=== PATIENT | female | born 1975 | race Caucasian/White ===

== ENCOUNTER 2019-06-25 06:56 | Emergency (ER) | payer BC, OTHER ==
[~2019-06-25] VITALS: Ht 152.4 cm; Wt 79.4 kg
[2019-06-25] MEDS ORDERED: SODIUM CHLORIDE 0.9% 1000ML 1,000 ML IV STA (07:27)
[2019-06-25 07:40] LABS: BASOPHILS % 0.3 % (0.0-1.0); EOSINOPHILS # (AUTO) 0.3 (0.0-0.4); EOSINOPHILS % 2.6 % (0.0-6.0); HEMATOCRIT 35.2 % (34.2-44.1); HEMOGLOBIN 11.2 g/dL (12.0-16.0); LYMPHOCYTES # (AUTO) 1.3 (1.0-3.2); LYMPHOCYTES % 14.1 % (18.0-39.1); MEAN CORPUSCULAR HEMOGLOBIN 31.2 pg (28-32); MEAN CORPUSCULAR HGB CONC 31.8 g/dL (31-35); MEAN CORPUSCULAR VOLUME 98.1 fL (81-99); MONOCYTES # (AUTO) 0.5 (0.2-0.8); MONOCYTES % 4.9 % (4.4-11.3); NEUTROPHILS # (AUTO) 7.3 (2.1-6.9); NEUTROPHILS % 77.6 % (38.7-80.0); PLATELET COUNT 349 x10e3/uL (140-360); RED BLOOD COUNT 3.59 x10e6/uL (3.6-5.1); RED CELL DISTRIBUTION WIDTH 13.7 % (11.7-14.4)
[2019-06-25 07:41] LABS: CLARITY,URINE CLOUDY (CLEAR); COLOR,URINE RED (YELLOW)
[2019-06-25 07:42] LABS: BILIRUBIN,URINE NEGATIVE (NEGATIVE); KETONES,URINE NEGATIVE (NEGATIVE); LEUKOCYTE ESTERASE ,URINE MODERATE (NEGATIVE); NITRITE,URINE NEGATIVE (NEGATIVE); PROTEIN,URINE DIPSTICK 2+ (NEGATIVE); URINE UROBILINOGEN 0.2 mg/dL (0.2 - 1)
[2019-06-25 07:45] LABS: RBC,URINE >50 /HPF (0-5); WBC,URINE (MAN) >50 /HPF (0-5)
[2019-06-25 07:46] LABS: BACTERIA,URINE MANY /HPF; EPITHELIAL CELLS,URINE MODERATE /LPF
[2019-06-25 07:56] LABS: ALANINE AMINOTRANSFERASE 13 IU/L (0-55); ALBUMIN 3.4 g/dL (3.5-5.0); ALBUMIN/GLOBULIN RATIO 1.3 (0.8-2.0); ALKALINE PHOSPHATASE 49 IU/L (40-150); ANION GAP 13.8 mmol/L (8-16); BLOOD UREA NITROGEN 9 mg/dL (7-26); BUN/CREATININE RATIO 13 (6-25); CALCIUM 8.8 mg/dL (8.4-10.2); CARBON DIOXIDE 23 mmol/L (22-29); CHLORIDE 106 mmol/L (98-107); CREATININE, SERUM 0.67 mg/dL (0.57-1.11); EST GLOMERULAR FILTRATION RATE > 60 ML/MIN (60-); GLUCOSE 89 mg/dL (74-118); POTASSIUM 3.8 mmol/L (3.5-5.1); SODIUM 139 mmol/L (136-145)
[2019-06-25] MEDS ORDERED: KETOROLAC TROMETHAMINE 30 MG/ML VIAL IV ONE (08:00)
--- NOTE | 2019-06-25 08:21 | NUR ---
POST RISIDUAL VOID [id number]
--- NOTE | 2019-06-25 08:22 | NUR ---
BLUE TOP DRAWN FOR MD
[2019-06-25 08:24] LABS: INR 0.9; PROTHROMBIN TIME 12.3 seconds (11.9-14.5)
[2019-06-25 08:25] LABS: PARTIAL THROMBOPLASTIN TIME 25.8 seconds (23.8-35.5)
[2019-06-25] MEDS ORDERED: MORPHINE SULFATE 2 MG/ML SYR 1ML IV ONE (08:30)
[2019-06-25] MEDS ORDERED: ONDANSETRON HCL INJ 2MG/ML 2ML 2 MG/ML VIAL IV ONE (08:30)
--- NOTE | 2019-06-25 09:08 | Diagnostic Imaging Report ---
CT of the abdomen and pelvis, without contrast, 06/25/2019. History: Left flank and bladder pain. Comparison: Prior images are not available for comparison, but a report from a CT abdomen from March 19, 2016 is available. Technique: Multidetector CT scanning of the abdomen and pelvis was performed from the level of the lung bases to the inferior pubic rami without intravenous or oral contrast. Coronal and sagittal multiplanar reformations were obtained. RADIATION DOSE: Total DLP: 637 mGy*cm Dose modulation, iterative reconstruction, and/or weight based adjustment of the mA/kV was utilized to reduce the radiation dose to as low as reasonably achievable. Discussion: Examination is limited without contrast. Lung bases: No visualized abnormalities. Abdomen: The kidneys are normal in size and position. There is no evidence of nephrolithiasis, hydronephrosis, or perinephric fat stranding. There is no ureteral dilatation. A 3.6 x 3.5 cm oval circumscribed homogeneously hypodense left adrenal lesion is present measuring 11 Hounsfield units in density. By previous report, this measured 3.3 x 3.1 cm. The liver, gallbladder, biliary tree, spleen, pancreas, and right adrenal gland are unremarkable. The abdominal aorta is within normal limits. There is no bowel dilatation. The appendix is visualized and is normal. A few diverticula are present in the distal colon without evidence of adjacent inflammation. There is no evidence of adenopathy or free fluid. Pelvis: The bladder is unremarkable. The uterus is absent. Left ovary is visible and is normal in appearance. Right ovary is not visible. Calcified phleboliths are present bilaterally. There is no evidence of free fluid or adenopathy. Bones and soft tissues: No acute abnormality. Mild degenerative changes are noted in the lumbar spine. IMPRESSION: 1. No evidence of renal abnormality. No hydronephrosis or nephrolithiasis. 2. 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 Recommend adrenal washout CT or chemical shift MRI. 3. Minimal colonic diverticulosis without evidence of diverticulitis. 4. Status post hysterectomy. Signed by: Jimmie Herrmann on 06/25/2019 9:05 AM
[2019-06-25] MEDS ORDERED: CEFTRIAXONE SOD 1 GM/NS 50 ML 50 ML IV ONE (09:15)
[2019-06-25] MEDS ORDERED: HYDROMORPHONE 1MG/1ML INJ IV STA (09:51)
--- NOTE | 2019-06-25 10:01 | NUR ---
PT STATES PAIN BACK TO AN 01/02 AND MD INFORMED AND ORDERED DILUADID FOR PAIN. PT STATES "MORPHINE DID NOTHING FOR ME EXCEPT WHEN SHE FIRST PUSHED IT." PT SEEMED ANNOYED. PT MEDICATED WITH NEW ORDER.
--- NOTE | 2019-06-25 11:02 | NUR ---
male spouse complaining pt here too long being treated. explained plan of care and process for understanding. pt states understanding. all paperwork given. pt ambulatory steady gait at d/c.
== END 2019-06-25 10:16 | disposition home or self-care (01) ==
LOC: ER 06:56
DX: R30.0 Dysuria (principal); N30.91 Cystitis, unspecified with hematuria; N10 Acute pyelonephritis; N12 Tubulo-interstitial nephritis, not specified as acute or chronic
CPT/HCPCS: 36415; 74176; 80053; 81001; 85025; 85610; 85730; 87086; 87186; 99284; J0696; J1170; J1885; J2270; J2405; J7030

== ENCOUNTER 2020-10-31 07:49 | Emergency (ER) | payer BC, OTHER ==
[~2020-10-31] VITALS: Ht 152.4 cm; Wt 79.4 kg
[2020-10-31] MEDS ORDERED: KETOROLAC TROMETHAMINE 30 MG/ML VIAL IV STA (08:09)
[2020-10-31] MEDS ORDERED: ACETAMINOPHEN 325 MG TAB PO ONE (08:15)
[2020-10-31 08:33] LABS: BASOPHILS % 0.3 % (0.0-1.0); EOSINOPHILS # (AUTO) 0.1 (0.0-0.4); EOSINOPHILS % 2.1 % (0.0-6.0); HEMATOCRIT 40.5 % (34.2-44.1); HEMOGLOBIN 12.7 g/dL (12.0-16.0); LYMPHOCYTES # (AUTO) 1.4 (1.0-3.2); LYMPHOCYTES % 23.5 % (18.0-39.1); MEAN CORPUSCULAR HEMOGLOBIN 29.6 pg (28-32); MEAN CORPUSCULAR HGB CONC 31.4 g/dL (31-35); MEAN CORPUSCULAR VOLUME 94.4 fL (81-99); MONOCYTES # (AUTO) 0.4 (0.2-0.8); NEUTROPHILS # (AUTO) 3.9 (2.1-6.9); NEUTROPHILS % 66.8 % (38.7-80.0); PLATELET COUNT 300 x10e3/uL (140-360); RED BLOOD COUNT 4.29 x10e6/uL (3.6-5.1); RED CELL DISTRIBUTION WIDTH 15.2 % (11.7-14.4)
[2020-10-31 08:52] LABS: CLARITY,URINE CLEAR (CLEAR); COLOR,URINE YELLOW (YELLOW); KETONES,URINE NEGATIVE (NEGATIVE); LEUKOCYTE ESTERASE ,URINE SMALL (NEGATIVE); NITRITE,URINE NEGATIVE (NEGATIVE); PROTEIN,URINE DIPSTICK NEGATIVE (NEGATIVE); URINE UROBILINOGEN 0.2 mg/dL (0.2 - 1)
[2020-10-31 09:06] LABS: ALBUMIN 3.9 g/dL (3.5-5.0); ALBUMIN/GLOBULIN RATIO 1.1 (0.8-2.0); ALKALINE PHOSPHATASE 67 IU/L (40-150); ANION GAP 14.9 mmol/L (8-16); BLOOD UREA NITROGEN 9 mg/dL (7-26); BUN/CREATININE RATIO 12 (6-25); CALCIUM 8.9 mg/dL (8.4-10.2); CARBON DIOXIDE 23 mmol/L (22-29); CHLORIDE 103 mmol/L (98-107); CREATININE, SERUM 0.76 mg/dL (0.57-1.11); EST GLOMERULAR FILTRATION RATE > 60 ML/MIN (60-); GLUCOSE 95 mg/dL (74-118); SODIUM 138 mmol/L (136-145); WBC,URINE (MAN) 21-50 /HPF (0-5)
[2020-10-31 09:07] LABS: BACTERIA,URINE RARE /HPF; EPITHELIAL CELLS,URINE RARE /LPF; POTASSIUM 2.9 mmol/L (3.5-5.1); RBC,URINE 0-5 /HPF (0-5)
[2020-10-31] MEDS ORDERED: POTASSIUM CHLORIDE 20 MEQ TAB CR PO STA (09:08)
[2020-10-31] MEDS ORDERED: CEPHALEXIN500 MG PO (09:59)
[2020-10-31] MEDS ORDERED: AZO URINARY P99.5 MG PO (10:22)
[2020-10-31 11:29] LABS: ALANINE AMINOTRANSFERASE 26 IU/L (0-55)
== END 2020-10-31 10:44 | disposition home or self-care (01) ==
LOC: ER 08:00
DX: R07.89 Other chest pain (principal); R10.13 Epigastric pain; N39.0 Urinary tract infection, site not specified; R51.9 Headache, unspecified
CPT/HCPCS: 36415; 71045; 80053; 81001; 84484; 85025; 87086; 87186; 93005; 99284; J1885